=== PATIENT | female | born 1970 | race Asian ===

== ENCOUNTER 2020-07-15 02:42 | Emergency (ER) | payer BC, SELFPAY ==
[2020-07-15] VITALS (11 sets, daily range): BP systolic 102–133; BP diastolic 39–50; PULSE 51–67; RESP 16–59; TEMP 36.4–36.7; O2SAT 97–100; BMI 25.4
--- NOTE | 2020-07-15 03:29 | ED.GENADULT ---
HPI - General Adult General Chief complaint: Nausea/Vomiting/Diarrhea Stated complaint: NAUSEA Time Seen by Provider: 07/15/20 03:23 Source: patient Mode of arrival: EMS Limitations: no limitations and language barrier History of Present Illness HPI narrative: patient comes to emergency room complaining of dizziness. Patient states she started having dizziness 2 hours ago, states that the whole room is spinning and making her very nauseous. Patient denies headache, no recent upper respiratory infections, no fever. MD complaint: Dizziness Onset (ago): hour(s) Related Data Allergies Allergy/AdvReac Type Severity Reaction Status Date / Time No Known Allergies Allergy Unverified 06/17/20 17:06 [No Known Allergies*] Review of Systems Review of Systems: Constitutional : No Weight loss, No Fever, No Chills, No Night Sweats, No Fatigue, No Malaise ENT/Mouth : No Hearing loss, No Ear Pain, No Nasal Congestion, No Sinus Pain, No Hoarseness, No sore throat, No Rhinorrhea, No Swallowing Difficulty Eyes: No Eye Pain, No Swelling, No Redness, No Foreign Body, No Discharge, No Vision Changes Cardiovascular : No Chest Pain, No SOB, No Dyspnea on Exertion, No Orthopnea, No Edema, No Palpitations Respiratory : No Cough, No Sputum, No Wheezing, No Smoke Exposure, No Dyspnea Gastrointestinal : complaining of nausea and Vomiting, No Diarrhea, No Constipation, No abdominal Pain, No Hematochezia, No Melena Genitourinary : no irregular bleeding, No Dysuria, No Urinary Frequency, No Hematuria, No Urinary Incontinence, No Urgency, No Flank Pain, No Urinary Flow Changes, No Hesitancy Musculoskeletal : No joint pain, No Myalgias, No Joint Swelling Skin : No Skin Lesions, No rash Neuro : No Weakness, No Numbness, No Paresthesias, No Loss of Consciousness, severe dizziness with any head movement, No Headache Psych : No Anxiety/Panic, No Depression, No SI/HI/AH/VH, No Social Issues, Heme/Lymph: No Bruising, No Bleeding,No Lymphadenopathy Endocrine : No Polyuria, No Polydipsia, No Temperature Intolerance PMFSH Past Medical History Medical History (Updated 07/15/20 @ 05:50 by Allison Nichole MD) Anemia Social History Social History Advance Directives: No Advance Directives Information Provided: No Physical Exam Vital Signs: Vital Signs: Vital Signs Temp Pulse Resp BP Pulse Ox 07/15/20 06:12 66 16 107/42 L 07/15/20 04:52 56 26 H 107/49 L 100 07/15/20 02:54 97.6 F 51 16 133/50 L 98 Body Mass Index 25.4 Appearance: Alert. Oriented X3. patient very nauseous Eyes: Pupils equal, round and reactive to light. patient has horizontal nystagmus, worsened by head movement ENT: Pharynx normal. Neck: Normal inspection. Neck supple. No lymph nodes noted. No crepitus CVS: Normal heart rate and rhythm. Pulses normal. Normal S1 and S2 Respiratory: No respiratory distress. Breath sounds normal. No Wheezing. No rales Abdomen: Soft and nontender. No rigidity. No distention. good BS x4 Skin: Skin warm and dry. Normal skin color. Normal skin turgor. Extremities: No lower extremity edema. No lower extremity edema. No Lacerations. No Rash Neuro: Oriented X 3. No motor deficit. No sensory deficit. Moving all extermities. No slurred speech. Course Course Course Narrative: I discussed with the patient that her hemoglobin is low. Patient states in [place] she was transfused before due to iron deficiency anemia. Patient denies heavy menstrual periods, denies any rectal bleeding or black stool. I discussed with the patient that she will need blood transfusion, patient is agreeable. I discussed with her the risks and benefits, patient agrees. patient's called and give further information, he states that the patient has been diagnosed with iron deficiency anemia in the past, patient is noncompliant with her iron treatment. evaluation 1: patient reports symptomatic relief. Patient states she still a bit dizzy, but much better. Patient will be transfused, then H&H should be checked. Sign-out given to Dr. Crabtree Medical Decision Making Lab Data Result diagrams: 07/15/20 03:38 07/15/20 03:38 Labs: Lab Results 07/15/20 07/15/20 07/15/20 Range/Units 03:38 03:38 05:12 WBC 8.0 (4.8-10.8) X10*3/uL RBC 4.10 L (4.20-5.50) X10*6/uL Hgb 7.3 L (12.0-16.0) g/dl Hct 28.8 L (37-47) % MCV 70.2 L (80-98) fL MCH 17.8 L (27.0-33.0) pg MCHC 25.3 L (31.0-35.0) g/dl RDW 33.8 H (11.0-16.0) % Plt Count 177 (160-400) X10*3/uL MPV Not Reportable Immature Gran % (Auto) Cancelled Neut % (Auto) Cancelled Lymph % (Auto) Cancelled [place] % (Auto) Cancelled Eos % (Auto) Cancelled Baso % (Auto) Cancelled Lymph # (Auto) Cancelled [place] # (Auto) Cancelled Eos # (Auto) Cancelled Baso # (Auto) Cancelled Abs Immat Gran (auto) Cancelled Absolute Neuts (auto) Cancelled Absolute Nucleated RBC 0.000 (0.0-0.012) X10*3/uL Nucleated RBC % (auto) 0.0 (0.0-0.2) /100WBC Neutrophils % (Manual) 76 H (45-73) % Band Neutrophils % 3 (3-5) % Lymphocytes % (Manual) 13 L (20-40) % Monocytes % (Manual) 6 (2-11) % Eosinophils % (Manual) 1 (0-4) % Metamyelocytes % 1 % Abs Neuts (Manual) 6.3 (2.2-7.9) X10*3/uL Lymphocytes # (Manual) 1.0 (0.6-4.8) X10*3/uL Monocytes # (Manual) 0.5 (0.0-1.2) X10*3/uL Eosinophils # (Manual) 0.1 (0.0-0.8) X10*3/UL Metamyelocytes # 0.1 X10*3/uL Nucleated RBCs 1 H (0-0) /100WBC Platelet Estimate NORMAL (NORMAL) Plt Morphology Comment NORMAL RBC Morphology NOTED Polychromasia 3+ Hypochromasia 3+ Basophilic Stippling 1+ Microcytosis 3+ Macrocytosis 1+ Target Cells 1+ Tear Drop Cells 3+ Ovalocytes 1+ Mcrae-Lovilia Bodies PRESENT Schistocytes 1+ Sodium 140 (135-145) mmol/L Potassium 3.5 (3.3-5.1) mmol/l Chloride 105 (96-108) mmol/L Carbon Dioxide 26 (22-29) mmol/L Anion Gap 13 (12-20) BUN 16 (9-16) mg/dL Creatinine 0.59 (0.5-1.4) mg/dL Estim Creat Clear Calc 94.9 Estimated GFR > 60 Random Glucose 147 H (60-115) mg/dL Calcium 8.7 (8.4-10.2) mg/dL Blood Type A Positive Antibody Screen NEGATIVE Crossmatch See Detail Discharge Plan Discharge Clinical Impression: Benign paroxysmal positional vertigo Qualifiers: Laterality: unspecified laterality Qualified Code(s): H81.10 - Benign paroxysmal vertigo, unspecified ear Iron deficiency anemia Qualifiers: Iron deficiency anemia type: unspecified iron deficiency Qualified Code(s): D50.9 - Iron deficiency anemia, unspecified
[2020-07-15] MEDS: Meclizine HCl 25 MG TABLET 50 MG PO (03:41)
[2020-07-15] MEDS: diphenhydrAMINE HCL 50 MG/ML VIAL 25 MG IVPUSH (03:41)
[2020-07-15] MEDS: ondansetron HCL 4 MG/2 ML VIAL IVPUSH (03:41)
--- NOTE | 2020-07-15 03:43 | PC.NURSE ---
Pt medicated per EMAR. IV and labs obtained and sent by JOSE MANUEL Martin. Continue to monitor.
[2020-07-15 03:50] LABS: Mean Corpuscular HGB Conc 25.3 g/dl (31.0-35.0)
[2020-07-15 03:52] LABS: Hematocrit 28.8 % (37-47); Hemoglobin 7.3 g/dl (12.0-16.0); Mean Corpuscular Hemoglobin 17.8 pg (27.0-33.0); Mean Corpuscular Volume 70.2 fL (80-98); PLT CLUMP 1; Red Cell Distribution Width 33.8 % (11.0-16.0)
[2020-07-15 04:14] LABS: Anion Gap 13 (12-20); Blood Urea Nitrogen 16 mg/dL (9-16); Calcium 8.7 mg/dL (8.4-10.2); Carbon Dioxide 26 mmol/L (22-29); Chloride 105 mmol/L (96-108); Creatinine Clr Calc Pharmacy 94.9; Estimated Glomerular Filt Rate > 60; Glucose Random 147 mg/dL (60-115); Potassium 3.5 mmol/l (3.3-5.1); Sodium 140 mmol/L (135-145)
[2020-07-15 04:23] LABS: PLT ABN DIST 1
[2020-07-15 04:29] LABS: Platelet Count 177 X10*3/uL (160-400)
--- NOTE | 2020-07-15 04:29 | PC.NURSE ---
Darleen Dasilva to be called with updates [phone]
[2020-07-15 04:31] LABS: Band Neutrophils Percent 3 % (3-5); Eosinophils Absolute Manual 0.1 X10*3/UL (0.0-0.8); Eosinophils Percent Manual 1 % (0-4); Lymphocytes Percent Manual 13 % (20-40); Metamyelocytes Absolute 0.1 X10*3/uL; Metamyelocytes Percent 1 %; Monocytes Absolute Manual 0.5 X10*3/uL (0.0-1.2); Monocytes Percent Manual 6 % (2-11); Neutrophils Absolute Manual 6.3 X10*3/uL (2.2-7.9); Neutrophils Percent Manual 76 % (45-73); Nucleated Red Blood Cells 1 /100WBC (0-0)
[2020-07-15 04:32] LABS: RBC Morphology NOTED
[2020-07-15 04:33] LABS: Microcytosis 3+; Platelet Estimate NORMAL (NORMAL); Platelet Morphology Comment NORMAL
[2020-07-15 04:34] LABS: Macrocytosis 1+; Ovalocytes 1+
[2020-07-15 04:35] LABS: Basophilic Stippling 1+; Schistocytes 1+; Target Cells 1+; Tear Drop Cells 3+
[2020-07-15 04:36] LABS: Howell Jolly Bodies PRESENT; Hypochromasia 3+; Polychromasia 3+
--- NOTE | 2020-07-15 05:00 | PC.NURSE ---
This RN speaking with pts . reports a history of anemia, states she refuses to change her diet or take Iron pills. states she has been anemic for at least 18 years. states that she has never had a blood transfusion because of it. Pt reports feeling somewhat better. Pt unsure if she is still dizzy/nauseated. VSS. Awaiting technology program manager to obtain T&S. Continue to monitor.
--- NOTE | 2020-07-15 05:22 | PC.NURSE ---
Pt ambulating to the bathroom, requiring a one assist, pt remains weak and dizzy with episodes of nausea.
--- NOTE | 2020-07-15 05:27 | PC.NURSE ---
T&S obtained and sent to lab for analysis.
--- NOTE | 2020-07-15 07:51 | PC.NURSE ---
PT RESTFUL ON BED. SKIN PALE AND SALLOW. CONSENT OBTAINED FOR RBCS ORDERED AND INFUSION STARTED, SEE TAR FOR DETAILS. THIS RN TO BEDSIDE AT THIS TIME FOR RX MONITORING. NSR ON MONITOR.
--- NOTE | 2020-07-15 10:33 | PC.NURSE ---
Transfusion completed, no rx noted. pt feeling well. IV line flushed per protocol. pt oob to bathroom, steady on feet.Repeat cbc to be collected Vitals stable
[2020-07-15 10:59] LABS: Hematocrit 30.4 % (37-47); Hemoglobin 8.3 g/dl (12.0-16.0); Mean Corpuscular HGB Conc 27.3 g/dl (31.0-35.0); Mean Corpuscular Hemoglobin 19.6 pg (27.0-33.0); Mean Corpuscular Volume 71.9 fL (80-98); Red Blood Count 4.23 X10*6/uL (4.20-5.50); Red Cell Distribution Width 31.9 % (11.0-16.0)
[2020-07-15 11:10] LABS: PLT ABN DIST 1
[2020-07-15 14:02] LABS: White Blood Count 6.4 X10*3/uL (4.8-10.8)
== END 2020-07-15 13:01 | disposition home or self-care (01) ==
PROVIDERS: Emergency Medicine; Emergency Provider Emergency Medicine
DX: H81.10 Benign paroxysmal vertigo, unspecified ear (principal); D50.9 Iron deficiency anemia, unspecified
CPT/HCPCS: 36415; 36430; 80048; 85007; 85025; 85027; 85060; 86850; 86900; 86901; 86920; 86923; 96374; 96375; 99285; J1200; J2405; P9016

== ENCOUNTER 2023-08-04 07:09 | Emergency (ER) | payer BC, SELFPAY ==
[2023-08-04] VITALS (10 sets, daily range): BP systolic 101–128; BP diastolic 32–85; PULSE 58–87; RESP 13–20; TEMP 36.4–36.9; O2SAT 95–98; BMI 22.9
--- NOTE | ~2023-08-04 | CT_ITS ---
EXAMINATION: CT HEAD WITHOUT CONTRAST CLINICAL INFORMATION: Dizziness. Vomiting. COMPARISON: None available. TECHNIQUE: Contiguous axial imaging was performed from the skull base to vertex without intravenous administration of contrast. This CT examination was performed using dose optimization techniques as appropriate, variously including the following: *Automated exposure control *Adjustment of mA and/or kV according to patient size (this includes techniques or standardized protocols for targeted exams where dose is matched to indication/reason for exam; i.e. extremities or head) *Use of iterative reconstruction technique DLP: 599 mGy-cm FINDINGS: There is no evidence of an extra-axial collection. There is no evidence of intra-axial or extra-axial hemorrhage. The ventricles and extra-axial CSF spaces are appropriate. Raymond-white matter differentiation is normal. No mass, mass effect or infarct. Review of bone windows is normal. No skull fracture. Visualized paranasal sinuses, mastoid air cells and middle ears are clear. CT/CT head/brain wo IV con IMPRESSION: No acute intracranial pathology.
--- NOTE | ~2023-08-04 | CT_ITS ---
EXAMINATION: CT ABDOMEN AND PELVIS WITHOUT CONTRAST CLINICAL INFORMATION: Nausea and vomiting. Elevated bilirubin. COMPARISON: None available. TECHNIQUE: Multidetector volumetric imaging was performed from the superior aspect of the liver through the pubic symphysis. Sagittal and coronal reformatted images were obtained on the technologist's workstation. This CT examination was performed using dose optimization techniques as appropriate, variously including the following: *Automated exposure control *Adjustment of mA and/or kV according to patient size (this includes techniques or standardized protocols for targeted exams where dose is matched to indication/reason for exam; i.e. extremities or head) *Use of iterative reconstruction technique DLP: 402 mGy-cm FINDINGS: LUNG BASES: The heart is enlarged. The lung bases are clear. LIVER, GALLBLADDER, AND BILIARY TREE: The liver is normal in size, shape, and attenuation. No focal hepatic lesion or biliary ductal dilatation is present. The gallbladder is unremarkable with no evidence of radiopaque gallstones, gallbladder wall thickening, or obvious pericholecystic inflammatory changes. PANCREAS: Unremarkable. SPLEEN: The spleen is enlarged. Spleen measures 2 cm in length. No focal splenic lesion. ADRENAL GLANDS: Unremarkable. KIDNEYS AND URETERS: The kidneys are normal in size, shape, and attenuation. No hydronephrosis, hydroureter, or calculi seen. I lateral renal cysts. No imaging follow-up recommended. No perinephric stranding. BLADDER: Unremarkable. GASTROINTESTINAL TRACT: Fatty infiltration of the wall of the proximal colon. This is a nonspecific finding but can be seen with chronic changes from previous colitis. The small and large bowel are otherwise unremarkable. The appendix is unremarkable. ABDOMINAL WALL: No significant hernia is appreciated. LYMPH NODES: Normal. VASCULAR: Unremarkable. PELVIC VISCERA: Unremarkable. OSSEOUS STRUCTURES: Unremarkable. CT/CT abdomen pelvis wo IV con IMPRESSION: Enlarged spleen. Enlarged heart. Normal-appearing liver, gallbladder and bile ducts. Fleischner guidelines were followed.
--- NOTE | 2023-08-04 07:23 | ECG_ITS ---
Test Reason : WEAKNESS Blood Pressure : / mmHG Vent. Rate : 066 BPM Atrial Rate : 066 BPM P-R Int : 196 ms QRS Dur : 094 ms QT Int : 428 ms P-R-T Axes : 052 083 063 degrees QTc Int : 448 ms Normal sinus rhythm Possible Left atrial enlargement Borderline ECG No previous ECGs available Referred By: Macarena Almodovar Electronically Signed By:LINETTE GOMEZ MD
--- NOTE | 2023-08-04 07:23 | PC.NURSE ---
Patient alert and oriented, denies pain or discomfort. Reports feeling weak and fatigued over the last few days and started with nausea and vomiting this morning. Mucus membranes pale, patient reports hx of anemia with blood tranfusions. Reports labs last checked in march but feels as if she needs a transfusion now. Denies chest pain, sob, or headache. Reports feeling dizzy.
--- NOTE | 2023-08-04 07:31 | ED_ITS ---
HPI - General Adult General Chief complaint: General Medical Stated complaint: dizzy/nausea x's days per ems Time Seen by Provider: 08/04/23 07:23 Source: patient Mode of arrival: EMS Limitations: no limitations History of Present Illness HPI narrative: patient is a 53-year-old female who presents emergency department via EMS for evaluation of generalized weakness, Intermittent dizziness made worse with position change and head movement, fatigue, or nausea and bilious vomiting. Reports onset of symptoms was 1 hour prior to arrival. She reports otherwise recently feeling well without any complaints. She states she has felt similar to this in the past when she required a blood transfusion. She was evaluated in the emergency department July of 2020, found to have BPPV in addition to id a requiring 1 unit PRBC transfusion, when asked whether she has been compliant with iron supplementation she states she is no longer taking this, she had a subsequent visit took [facility] where they advised her that she needs to be taking B12 and folate instead. denies fevers, chills, URI symptoms, presyncope, syncope, neck pain, chest pain, shortness of breath difficulty breathing, abdominal pain, genitourinary symptoms, bloody or black stools, numbness or tingling of the extremities, recent falls, active bleeding Related Data Home Medications Medication Instructions Recorded Confirmed cyanocobalamin (vitamin B-12) 1,000 mcg PO DAILY 08/04/23 08/04/23 1,000 mcg tablet folic acid 1 mg tablet 1 mg PO DAILY 08/04/23 08/04/23 Allergies Allergy/AdvReac Type Severity Reaction Status Date / Time No Known Allergies Allergy Unverified 06/17/20 17:06 [No Known Allergies*] Review of Systems 2 Review of Systems: Yes all other systems are reviewed and are negative [facility] Past Medical History Attestation statement: The following information was validated with the patient. Source: old records reviewed Medical History Anemia Social History Social History Alcohol intake: former Smoked in Last 30 Days: No Use of substances other than those prescribed or required for medical reasons: No Advance Directives: No Advance Directives Information Provided: No Physical Exam ED Vital Signs: Vital Signs - 24 hr 08/04/23 07:20 08/04/23 07:54 11/04/23 07:55 Temperature 97.6 F Pulse Rate 61 58 59 Respiratory Rate 18 Blood Pressure 128/52 L 110/32 L 121/37 L Pulse Oximetry 95 Oxygen Delivery Method Room Air 08/04/23 07:55 08/04/23 08:00 Temperature Pulse Rate 61 78 Respiratory Rate 18 Blood Pressure 125/50 L 106/43 L Pulse Oximetry 98 Oxygen Delivery Method Room Air BMI result Body Mass Index 22.9 Appearance: Alert.?Oriented to person, place and time. No acute distress.?Normal affect. Eyes: Pupils equal, round and reactive to light.? horizontal nystagmus worsened with head movement, mild scleral icterus ENT: Pharynx normal.?? Neck: Normal inspection.? Neck supple.?? CVS: Heart sounds normal. Normal heart rate and rhythm.? Pulses normal.?? Respiratory: No respiratory distress.? Lung sounds clear to auscultation bilaterally?? Abdomen: Soft and non-tender. Normoactive bowel sounds. Skin: Skin warm and dry.? skin appears jaundiced.? ? Extremities: No lower extremity edema. Neuro: Moves all extremities spontaneously. Sensation intact bilaterally. No focal neuro deficits. Ambulates with normal steady gait. Course Reevaluation(s) Reevaluation #1: orthostatic vital signs negative. Reporting some improvement in nausea with Zofran IV. CBC is without leukocytosis, microcytic anemia with hemoglobin and hematocrit 7.7/30 respectively, liver function testing revealing only elevated total bilirubin at 3.7, concern for hemolytic anemia. Reviewed blood transfusion consent form, indication/side effects/ complications and consent was signed. Will obtain CT of the head, abdomen and pelvis for further evaluation, plan for admission to hospital, and patient is agreeable. Time: 08:16 Reevaluation #2: hospitalist service went to bedside to speak with patient. She and her at this time her declining hospital admission, she is reporting at this time that her only symptoms included nausea of with sudden onset 1 hour prior to arrival. She states in the past she has received blood transfusions and been discharged home, she does not feel as though she needs an admission to the hospital. I again Spoke to her at length about concern for possible hemolytic anemia in her initial reported symptoms in addition to jaundiced appearance an elevated total bilirubin. She verbalized understanding of this but again would like to be discharged home, After her blood transfusion. Given varying story, I remain concerned for symptomatic anemia, advised patient to be leaving mm medical advice and she verbalized the understanding of this including potential complications which may be life-threatening. I also reviewed iron studies obtained, iron level is normal, transferrin saturation within normal range, TIBC is mildly low at 206 concerning for thalassemia hemolytic anemia, which may support her previous advisement from another hospital to take B12 and folate as simultaneous deficiency can be found. Time: 12:14 Reevaluation #3: I have been in contact with the blood pain, patient has yet to receive transfusion of 1 unit PRBC, they are unable to rule out 5 antibodies with her type and screen, currently per the blood bank we do not have any compatible units that we are able to give her on last this is emergent and we want to give her uncross matched blood. Given that there are currently no compatible units in hospital blood bank as informed me that the next step would be to contact [facility] to arrange for possible units that may be compatible for her. I spoke with patient at length about this, at this time she is denying any symptoms. My concern however is with her anemia, recurrent jaundice, and continued process if she is not transfused her blood counts will continue to drops, and if she did leave against medical advice, a have complications some symptomatic anemia, potentially life-threatening. I spoke again with the hospitalist Service, DENAE Dorado and Dr. Pak, regarding patient case at this time because she is now agreeable to remain in the hospital so that she may receive appropriate blood transfusion and at this time they would like to await hospital admission until transfusion can be appropriately arranged, do not feel as though she needs urgent blood transfusion as she is currently asymptomatic. Time: 14:00 Additional Reevaluation(s): 14:10: blood bank has now advised me that they have found 1 unit thus far that would be compatible, they are testing additional units as per hospital policy there needs to be 2 extra units available, they will keep us updated. 15:33 : patient signed out to [facility] PHILIPPE pending transfusion status Medications Administered Discontinued Medications Generic Name Dose Route Start Last Admin Trade Name Freq PRN Reason Stop Dose Admin Sodium Chloride 1,000 mls @ 999 mls/hr 08/04/23 07:45 08/04/23 10:08 Ns IV 08/04/23 08:45 Infused .Q1H1M PORFIRIO Infusion Meclizine HCl 25 mg 11/04/23 07:39 08/04/23 07:59 Meclizine Hcl 25 Mg Tablet PO 08/04/23 07:40 25 mg ONCE ONE Administration Ondansetron HCl 4 mg 08/04/23 07:42 08/04/23 07:59 Ondansetron Hcl 4 Mg/2 Ml Vial IVPUSH 08/04/23 07:43 4 mg ONCE ONE Administration Medical Decision Making Medical Decision Making [facility] Narrative: patient is a 53-year-old female with reported past medical history of anemia, BPPV presenting to emergency department sudden onset of dizziness weakness nausea and vomiting prior to arrival. Upon my examination she appears jaundiced with scleral icterus, abdominal examination is benign, notable horizontal nystagmus that worsens with head movement. Concern at this time for BPPV versus intracranial etiology; CVA, cerebellar stroke (NIH stroke score 0 no focal neurological deficits, anemia requiring possible blood transfusion, potential hemolytic anemia, verses obstructive hepatobiliary etiology. Will obtain CBC to evaluate for leukocytosis/ anemia, CMP and lipase to evaluate for abnormal electrolytes /abnormal renal function/ abnormal hepatic/biliary function, EKG and troponin to evaluate for ischemia/ACS and Urinalysis. Will await imaging until labs have resulted. obtain orthostatics vital signs prior to administration of 1 L normal saline IV fluid. Refusing digital rectal examination. Differential Diagnosis Differential Diagnoses: The differential diagnosis associated with the presentation includes ( As noted above) Admission/Observation Consideration of admission/observation: Escalation of care including admission/observation considered ( I considered admission for sudden onset nausea vomiting weakness and dizziness, seen narrative above in course narrative for further detail) Lab Data MDM Lab Attestation statement: I reviewed the patient's lab results. ( see course narrative for further detail) 08/04/23 07:41 08/04/23 07:41 Labs: Lab Results 08/04/23 08/04/23 08/04/23 Range/Units 07:41 07:44 12:45 WBC 9.0 (4.8-10.8) X10*3/uL RBC 4.37 (4.20-5.50) X10*6/uL Hgb 7.7 L (12.0-16.0) g/dl Hct 30.0 L (37.0-47.0) % MCV 68.6 L (80.0-98.0) fL MCH 17.6 L (27.0-33.0) pg MCHC 25.7 L (31.0-35.0) g/dl RDW 33.2 H (11.0-16.0) % Plt Count 165 (160-400) X10*3/uL MPV Not Reportable Immature Gran % (Auto) 0.8 H (0.0-0.4) % Neut % (Auto) 82.8 H (45-73) % Lymph % (Auto) 11.4 L (20-40) % [place] % (Auto) 3.8 (2-11) % Eos % (Auto) 1.1 (0-4) % Baso % (Auto) 0.1 (0-2) % Lymph # (Auto) 1.0 L (1.2-4.9) X10*3/uL [place] # (Auto) 0.3 (0.1-1.2) X10*3/uL Eos # (Auto) 0.1 (0.0-0.4) X10*3/uL Baso # (Auto) 0.0 (0.0-0.2) X10*3/uL Abs Immat Gran (auto) 0.07 H (0.00-0.03) X10*3/uL Absolute Neuts (auto) 7.5 (2.0-8.3) x10*3/uL Absolute Nucleated RBC 0.030 H (0.0-0.012) X10*3/uL Nucleated RBC % (auto) 0.3 H (0.0-0.2) /100WBC Smear Tech's Comments VERIFIED Sodium 137 (135-145) mmol/L Potassium 3.6 (3.3-5.1) mmol/L Chloride 104 (96-108) mmol/L Carbon Dioxide 25 (22-29) mmol/L Anion Gap 12 (12-20) BUN 14 (9-16) mg/dL Creatinine 0.64 (0.5-1.4) mg/dL Estim Creat Clear Calc 82.2 Estimated GFR > 60 Random Glucose 142 H (60-115) mg/dL Calcium 9.1 (8.4-10.2) mg/dL Magnesium 1.9 (1.6-2.6) mg/dL Iron 61 (30-160) mcg/dL TIBC 206 L (228-428) mcg/dL % Saturation 30 (15-50) % Unsat Iron Binding 145 ug/dL Total Bilirubin 3.7 H (0.0-1.0) mg/dL AST 21 (5-31) U/L ALT 12 (0-31) U/L Alkaline Phosphatase 71 (39-117) U/L Troponin I High Sens < 2.7 (<3.5-17.0) ng/L B-Natriuretic Peptide 45 (<100) pg/mL Total Protein 7.4 (6.5-8.0) g/dL Albumin 4.2 (3.5-5.0) g/dL Lipase 21 (8-78) U/L Urine Color Yellow Urine Appearance Clear Urine pH 6.0 (5.0-9.0) Ur Specific [place] 1.010 (1.005-1.025) Urine Protein Negative (Neg-Trace) mg/dL Urine Glucose (UA) Negative (Negative) mg/dL Urine Ketones Negative (Negative) mg/dL Urine Blood Negative (Negative) Urine Nitrite Negative (Negative) Ur Leukocyte Esterase Negative (Negative) Urine Test NEGATIVE (NEGATIVE) COVID-19 (YODIT) Negative (Negative) COVID-19 Clin Com See Note Influenza Type A (LELO) Negative (Negative) Influenza Type B (LELO) Negative (Negative) Influenza A & B Note See Note Blood Type A Positive Antibody Screen POSITIVE Crossmatch See Detail Blood Bank Comment Technical Independent Interpretation I performed an independent interpretation of an: EKG Interpretation: Rate:66 Rhythm:? normal sinus rhythm [place]:? normal Normal P waves.? Normal ROHITH.?? Normal QRS complex.?? ST T wave :?? no ST elevation, no ST depression, T-wave inversion in V1 and V2 qTC:448 prior studies:? The study has been interpreted contemporaneously by me. Independent Historian Clinical information obtained from an independent historian. History obtained from or confirmed by: EMS Critical Care Time Critical Care Time Critical Care Time: Yes Total Critical Care Time: 45 Attestation: I personally attest to this critical care time spent taking care of the patient exclusive of all other billable procedures was approximately 45 minutes including initial evaluation of patient, ordering tests, x-ray interpretation, EKG interpretation, medical consultation, documentation, re-evaluation. Discharge Plan Discharge Clinical Impression: Anemia Patient Disposition: Still a Patient Prescriptions: No Action cyanocobalamin (vitamin B-12) 1,000 mcg tablet 1,000 mcg PO DAILY folic acid 1 mg tablet 1 mg PO DAILY
[2023-08-04 07:50] LABS: Basophils Percent Auto 0.1 % (0-2); Eosinophils Absolute Auto 0.1 X10*3/uL (0.0-0.4); Eosinophils Percent Auto 1.1 % (0-4); Hemoglobin 7.7 g/dl (12.0-16.0); Imm Gran Abs Auto 0.07 X10*3/uL (0.00-0.03); Imm Gran Pct Auto 0.8 % (0.0-0.4); Lymphocytes Percent Auto 11.4 % (20-40); MANUAL DIFF FLAG SCAN; Mean Corpuscular HGB Conc 25.7 g/dl (31.0-35.0); Mean Corpuscular Hemoglobin 17.6 pg (27.0-33.0); Mean Corpuscular Volume 68.6 fL (80.0-98.0); Monocytes Absolute Auto 0.3 X10*3/uL (0.1-1.2); Monocytes Percent Auto 3.8 % (2-11); NRBC Pct Auto 0.3 /100WBC (0.0-0.2); Neutrophils Absolute Auto 7.5 x10*3/uL (2.0-8.3); Neutrophils Percent Auto 82.8 % (45-73); PLT CLUMP 1; Red Blood Count 4.37 X10*6/uL (4.20-5.50); Red Cell Distribution Width 33.2 % (11.0-16.0); SCAN SMEAR FLAG 1
[2023-08-04] MEDS: ondansetron HCL 4 MG/2 ML VIAL IVPUSH (07:59)
[2023-08-04] MEDS: Meclizine HCl 25 MG TABLET PO (07:59)
[2023-08-04] MEDS: 0.9 % Sodium Chloride 1,000 ML 999 ML IV (08:00)
[2023-08-04 08:07] LABS: Alanine Aminotransferase 12 U/L (0-31); Albumin Level 4.2 g/dL (3.5-5.0); Alkaline Phosphatase 71 U/L (39-117); Anion Gap 12 (12-20); Aspartate Amino Transferase 21 U/L (5-31); Bilirubin Total 3.7 mg/dL (0.0-1.0); Blood Urea Nitrogen 14 mg/dL (9-16); Calcium 9.1 mg/dL (8.4-10.2); Carbon Dioxide 25 mmol/L (22-29); Chloride 104 mmol/L (96-108); Creatinine Clr Calc Pharmacy 82.2; Estimated Glomerular Filt Rate > 60; Glucose Random 142 mg/dL (60-115); Lipase 21 U/L (8-78); Magnesium 1.9 mg/dL (1.6-2.6); Potassium 3.6 mmol/L (3.3-5.1); Sodium 137 mmol/L (135-145); Total Protein 7.4 g/dL (6.5-8.0)
[2023-08-04 08:09] LABS: B Type Natriuretic Peptide 45 pg/mL (<100); Platelet Count 165 X10*3/uL (160-400)
[2023-08-04 08:10] LABS: SLIDE REVIEW VERIFIED
[2023-08-04 08:14] LABS: COVID-19 Test Negative (Negative); IDNOW Serial# 08D9AD1C; IDNOW Serial# BCCEAD1C; Influenza A Negative (Negative); Influenza B2 Negative (Negative)
[2023-08-04 09:02] LABS: Troponin-I High Sensitivity < 2.7 ng/L (<3.5-17.0)
--- NOTE | 2023-08-04 10:17 | PC.NURSE ---
Patient reports feeling better after IV fluids. Ambulated to bathroom with steady gait, denies dizziness
--- NOTE | 2023-08-04 10:29 | PHA.MEDREC ---
Pharmacy Consult ? Medication Reconciliation Pharmacy has completed the medication reconciliation.
--- NOTE | 2023-08-04 11:19 | PM.IMHP ---
History of Present Illness Date of Service: 08/04/23 Attending physician on admission: Wagner Pak Chief Complaint: Generalized weakness, dizziness Pt is a 53-year-old female with a PMH significant for? who presents to the ED with? In the ED labs were significant for microcytic anemia with H&H 7.7/30.0 and MCV 68.6, and total bilirubin 3.7. Electrolytes WNL. Renal function WNL. AST, ALT, alk-phos WNL. Troponins negative. BNP negative. CT?of abdomen and pelvis found enlarged spleen enlarged heart and normal-appearing liver, gallbladder, and bile ducts. CT of head found no acute intracranial pathology. EKG demonstrated normal sinus rhythm without evidence of ST elevations or depressions. Pt was treated with Pt will be admitted to the hospital [facility] Medical History Anemia Social History Alcohol intake: former Smoked in Last 30 Days: No Use of substances other than those prescribed or required for medical reasons: No Advance Directives: No Advance Directives Information Provided: No Meds Allergies Allergy/AdvReac Type Severity Reaction Status Date / Time No Known Allergies Allergy Unverified 06/17/20 17:06 [No Known Allergies*] Home Medications Medication Instructions Recorded Confirmed Last Taken Type cyanocobalamin (vitamin B-12) 1,000 mcg PO DAILY 08/04/23 08/04/23 08/04/23 History 1,000 mcg tablet folic acid 1 mg tablet 1 mg PO DAILY 08/04/23 08/04/23 08/04/23 History Physical Exam Vital Signs and Narrative: Vital Signs: Last Vital Signs Temp 97.6 F 08/04/23 07:20 Pulse 78 08/04/23 08:00 Resp 18 08/04/23 08:00 BP 106/43 L 08/04/23 08:00 Pulse Ox 98 08/04/23 08:00 O2 Del Method Room Air 08/04/23 08:00 BMI result Body Mass Index 22.9 Results Labs 08/04/23 07:41 08/04/23 07:41 Labs: Laboratory Results - last 24 hr 08/04/23 08/04/23 07:41 07:44 MCV 68.6 L MCH 17.6 L MCHC 25.7 L RDW 33.2 H Plt Count 165 MPV Not Reportable Immature Gran % (Auto) 0.8 H Neut % (Auto) 82.8 H Lymph % (Auto) 11.4 L [place] % (Auto) 3.8 Eos % (Auto) 1.1 Baso % (Auto) 0.1 Lymph # (Auto) 1.0 L [place] # (Auto) 0.3 Eos # (Auto) 0.1 Baso # (Auto) 0.0 Abs Immat Gran (auto) 0.07 H Absolute Neuts (auto) 7.5 Absolute Nucleated RBC 0.030 H Nucleated RBC % (auto) 0.3 H Smear Tech's Comments VERIFIED Anion Gap 12 Estim Creat Clear Calc 82.2 Estimated GFR > 60 Random Glucose 142 H Calcium 9.1 Magnesium 1.9 Total Bilirubin 3.7 H AST 21 ALT 12 Alkaline Phosphatase 71 B-Natriuretic Peptide 45 Total Protein 7.4 Albumin 4.2 Lipase 21 COVID-19 (YODIT) Negative COVID-19 Clin Com See Note Influenza Type A (LELO) Negative Influenza Type B (LELO) Negative Influenza A & B Note See Note Blood Type A Positive Antibody Screen POSITIVE Crossmatch See Detail Blood Bank Comment Technical Imaging Radiologist's Impressions: Impressions Abdomen/Pelvis CT 08/04/23 08:47 IMPRESSION: Enlarged spleen. Enlarged heart. Normal-appearing liver, gallbladder and bile ducts. Fleischner guidelines were followed. Head CT 08/04/23 08:47 IMPRESSION: No acute intracranial pathology. Assessment and Plan Plan Microcytic anemia
[2023-08-04 12:04] LABS: Iron 61 mcg/dL (30-160); Percent Iron Saturation 30 % (15-50); Total Iron Binding Capacity 206 mcg/dL (228-428); Unsaturated Iron Binding 145 ug/dL
[2023-08-04 12:55] LABS: Appearance Urine Clear; Color Urine Yellow; Glucose Urine UA Negative (Negative); Leukocyte Esterase Urine Negative (Negative); Nitrite Urine Negative (Negative); Urine Blood Negative (Negative); Urine Ketones Negative (Negative); Urine Protein Negative (Neg-Trace)
[2023-08-04 12:59] LABS: UPreg QC Valid YES; Urine Pregnancy NEGATIVE (NEGATIVE)
--- NOTE | 2023-08-04 14:14 | PC.NURSE ---
Called blood bank, blood bank still working on blood
--- NOTE | 2023-08-04 16:02 | PC.NURSE ---
VSs, nsr on monitor, afebrile, denies pain or discomfort
--- NOTE | 2023-08-04 16:33 | PC.NURSE ---
Blood tranfusion per T[facility], patient without s/s of reaction
--- NOTE | 2023-08-04 16:54 | PC.NURSE ---
Patient stating that her plan is to leave when blood tranfusion is complete. States she has had tranfusions before and always leaves right after. Message sent to admitting provider.
--- NOTE | 2023-08-04 17:35 | PC.NURSE ---
Patient resting with eyes closed, breathing even and unlabored
--- NOTE | 2023-08-04 18:46 | MHC.EDTECH ---
Dinner tray given
--- NOTE | 2023-08-04 19:59 | P.DS_ITS ---
DS: Providers Provider Date of Service: 08/04/23 Date of admission: 08/04/23 16:47 Primary care physician: Unknown Physician DS: Diagnosis Discharge Diagnosis (1) Anemia: Status: Acute DS: Summary Hospital Course Hospital Course: Patient presented to the ED for evaluation of sudden-onset nausea and was found to be anemic. Patient was set to be transfused units of PRBCs and be admitted into the hospital, but left AMA from the emergency department after transfusions and before being officially admitted to the hospital floor. Time Attestation Discharge coordination time: Less than 30 minutes Quality: Safe Use of Opioids Does Pt have an Active Cancer Diagnosis on the Problem List?: No Quality: Stroke Does the patient have a stroke diagnosis?: No Physical Exam Vital Signs: Vital Signs: Last Vital Signs Temp 97.6 F 08/04/23 19:41 Pulse 74 08/04/23 19:41 Resp 13 08/04/23 19:41 BP 111/39 L 08/04/23 19:41 Pulse Ox 97 08/04/23 16:02 O2 Del Method Room Air 08/04/23 08:00 BMI result Body Mass Index 22.9 DS: Data Data Completed and Pending Labs on day of discharge: Laboratory Results - last 24 hr 08/04/23 08/04/23 08/04/23 07:41 07:44 07:44 WBC 9.0 RBC 4.37 Hgb 7.7 L Hct 30.0 L MCV 68.6 L MCH 17.6 L MCHC 25.7 L RDW 33.2 H Plt Count 165 MPV Not Reportable Immature Gran % (Auto) 0.8 H Neut % (Auto) 82.8 H Lymph % (Auto) 11.4 L Smith % (Auto) 3.8 Eos % (Auto) 1.1 Baso % (Auto) 0.1 Lymph # (Auto) 1.0 L Smith # (Auto) 0.3 Eos # (Auto) 0.1 Baso # (Auto) 0.0 Abs Immat Gran (auto) 0.07 H Absolute Neuts (auto) 7.5 Absolute Nucleated RBC 0.030 H Nucleated RBC % (auto) 0.3 H Smear Tech's Comments VERIFIED Sodium 137 Potassium 3.6 Chloride 104 Carbon Dioxide 25 Anion Gap 12 BUN 14 Creatinine 0.64 Estim Creat Clear Calc 82.2 Estimated GFR > 60 Random Glucose 142 H Calcium 9.1 Magnesium 1.9 Iron 61 TIBC 206 L % Saturation 30 Unsat Iron Binding 145 Total Bilirubin 3.7 H AST 21 ALT 12 Alkaline Phosphatase 71 Troponin I High Sens < 2.7 B-Natriuretic Peptide 45 Total Protein 7.4 Albumin 4.2 Lipase 21 Urine Color Urine Appearance Urine pH Ur Specific Crowder Urine Protein Urine Glucose (UA) Urine Ketones Urine Blood Urine Nitrite Ur Leukocyte Esterase Urine Test COVID-19 (YODIT) Negative COVID-19 Clin Com See Note Influenza Type A (LELO) Negative Influenza Type B (LELO) Negative Influenza A & B Note See Note Blood Type A Positive Antibody Screen POSITIVE Antibody Identification Anti-E Anti-Jkb Crossmatch Crossmatch ([facility]) Blood Bank Comment 08/04/23 08/04/23 07:44 12:45 WBC RBC Hgb Hct MCV MCH MCHC RDW Plt Count MPV Immature Gran % (Auto) Neut % (Auto) Lymph % (Auto) Smith % (Auto) Eos % (Auto) Baso % (Auto) Lymph # (Auto) Smith # (Auto) Eos # (Auto) Baso # (Auto) Abs Immat Gran (auto) Absolute Neuts (auto) Absolute Nucleated RBC Nucleated RBC % (auto) Smear Tech's Comments Sodium Potassium Chloride Carbon Dioxide Anion Gap BUN Creatinine Estim Creat Clear Calc Estimated GFR Random Glucose Calcium Magnesium Iron TIBC % Saturation Unsat Iron Binding Total Bilirubin AST ALT Alkaline Phosphatase Troponin I High Sens B-Natriuretic Peptide Total Protein Albumin Lipase Urine Color Yellow Urine Appearance Clear Urine pH 6.0 Ur Specific Crowder 1.010 Urine Protein Negative Urine Glucose (UA) Negative Urine Ketones Negative Urine Blood Negative Urine Nitrite Negative Ur Leukocyte Esterase Negative Urine Test NEGATIVE COVID-19 (YODIT) COVID-19 Clin Com Influenza Type A (LELO) Influenza Type B (LELO) Influenza A & B Note Blood Type Antibody Screen Antibody Identification Anti-K Crossmatch See Detail Crossmatch ([facility]) See Detail Blood Bank Comment Technical Discharge Plan Discharge Patient Disposition: Left Against Medical Advice Discharge Diagnosis: Anemia Referrals: Physician,Unknown J [Primary Care Provider] - 1 Week Discharge Medications: No Action cyanocobalamin (vitamin B-12) 1,000 mcg tablet 1,000 mcg PO DAILY folic acid 1 mg tablet 1 mg PO DAILY Discharge Orders: Discharge Order (Routine); Ordered 08/04/23 Ordered By: Elissa Carter Stand Alone Forms: Against Medical Advice Care Plan Goals: Resume all home meds Health Concerns: If symptoms return, persist, worsen please return to the ED for further eval uation Plan of Treatment: Follow-up with PCP in 1 week for repeat labs Assessment: See discharge summary
--- NOTE | 2023-08-04 20:10 | PC.NURSE ---
HARPRE[facility] paperwork signed by
== END 2023-08-04 20:09 | disposition left against medical advice (07) ==
LOC: HO.ED 16:07 → HO.EDOVER 17:25
PROVIDERS: Nurse Practitioner Family; Emergency Provider Emergency Medicine; Visit Provider Student in an Organized Health Care Education/Training Program
DX: D64.9 Anemia, unspecified (principal); R42 Dizziness and giddiness; R53.1 Weakness; R17 Unspecified jaundice; Z11.52 Encounter for screening for COVID-19; Z79.899 Other long term (current) drug therapy; R11.2 Nausea with vomiting, unspecified; R29.700 NIHSS score 0
CPT/HCPCS: 36415; 36430; 70450; 74176; 80053; 81003; 81025; 83540; 83690; 83735; 83880; 84484; 85025; 86850; 86870; 86900; 86901; 86902; 86905; 86920; 86922; 87502; 87635; 93005; 96361; 96374; 99285; J2405; P9016

== ENCOUNTER → 2023-08-04 16:47 | Outpatient (BNV) | payer BC, SELFPAY | PROVIDERS: Admitting Provider Student in an Organized Health Care Education/Training Program; Emergency Provider Emergency Medicine; Visit Provider Student in an Organized Health Care Education/Training Program | DX: D64.9 Anemia, unspecified (principal) | CPT/HCPCS: 99283 ==